=== PATIENT | male | born 1970 | race Caucasian/White ===

== ENCOUNTER 2018-10-27 20:05 | Emergency (ER) | payer MEDICAID, OTHER ==
[~2018-10-27] VITALS: Ht 172.7 cm; Wt 74.7 kg
[2018-10-27 20:14] VITALS: BP 126/83
== END 2018-10-27 20:50 | disposition home or self-care (01) ==
LOC: ED 20:44
DX: K08.89 Other specified disorders of teeth and supporting structures (principal); R51 Headache; F17.210 Nicotine dependence, cigarettes, uncomplicated; Z72.9 Problem related to lifestyle, unspecified
CPT/HCPCS: 99283

== ENCOUNTER 2020-03-15 02:46 | Emergency (ER) | payer SELFPAY ==
[~2020-03-15] VITALS: Ht 172.7 cm; Wt 79.0 kg
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
[2020-03-15] MEDS ORDERED: HYDROcodone/APAP 5/325 TABLET PO ONE (03:30)
[2020-03-15] MEDS ORDERED: HYDROcodone/APAP 5/325 TABLET ONE (03:34)
[2020-03-15 03:39] VITALS: BP 135/71
== END 2020-03-15 03:41 | disposition home or self-care (01) ==
LOC: ED 03:15
DX: S03.2XXA Dislocation of tooth, initial encounter (principal); F17.200 Nicotine dependence, unspecified, uncomplicated; Y08.89XA Assault by other specified means, initial encounter; Y93.01 Activity, walking, marching and hiking; Y92.488 Other paved roadways as the place of occurrence of the external cause; Y99.8 Other external cause status
CPT/HCPCS: 99283